=== PATIENT | female | born 1935 | race Caucasian/White ===

== ENCOUNTER → 2016-09-12 | Outpatient (CLI) | payer MEDICARE, OTHER ==
[~2016-09-12] MED LIST: /ESCI20TA OR; AMIT25TA PO; AMLO10TA OR; ASPI81CH PO; ATAC32TA PO; B-6 OR; CALCIUM 600 + VIT D OR; CARV6.25 PO; CHLO125TA PO; CHLO25TA PO; CIPR25SS OR; CIPR500T4 OR; CLON0.1D3 TD; COLA100C2 OR; CRES5TAB PO; EFFE150C PO; FLAG500T OR; LASI40TA OR; LOVA1CAP17 PO; LOVAZA OR; MECL25CH PO; MULTIVIT OR; MYSO50TA5 PO; POTA10TA34 PO; SPIRPOW OR; SYNT50TA PO; SYNTHROID OR; TOPR100T OR; VALI2TAB PO; VIT D 4000 OR; VITATAB11 PO; WELCHOL OR; XANA0.5T PO
[2016-09-12 13:40] LABS: MEAN CORPUSCULAR HEMOGLOBIN 32.8 pg (27.0-33.0); MEAN CORPUSCULAR HGB CONC 35.7 g/dl (32.0-36.5); RED CELL DISTRIBUTION WIDTH 12.4 % (11.5-14.5); WHITE BLOOD COUNT 2.6 K/mm3 (4.0-10.0)
[2016-09-12 14:31] LABS: CALCIUM LEVEL 9.1 MG/DL (8.8-10.2); CREATININE FOR GFR 0.98 MG/DL (0.55-1.02); GLOMERULAR FILTRATION RATE 58.3 (>39); POTASSIUM SERUM 3.8 MEQ/L (3.5-5.1)
[2016-09-12 14:32] LABS: ALBUMIN 3.7 GM/DL (3.2-5.2); MAGNESIUM LEVEL 1.9 MG/DL (1.8-2.4)
== END ==
LOC: M LAB 11:39
PROVIDERS: ATTEND Physician Assistant
DX: I48.0 Paroxysmal atrial fibrillation (principal); I50.32 Chronic diastolic (congestive) heart failure

== ENCOUNTER → 2016-09-13 | Outpatient (CLI) | payer MEDICARE, OTHER ==
[~2016-09-13] VITALS: Ht 165.1 cm; Wt 72.1 kg
[~2016-09-13] MED LIST changes: +NS 1,000 ML IV SCH; +PROPOFOL 200 MG/20 ML VIAL As Ordered ONE
--- NOTE | 2016-09-13 13:02 | ROOR ---
Patient Name: Noemy Morrell Procedure Date: 09/13/2016 12:34 PM Date of : 1935 Age: 80 Room: [facility] Gender: Female Note Status: Finalized Procedure: Colonoscopy to Cecum + Biopsy Polypectomy Indications: High risk colon cancer surveillance: Personal history of adenoma with villous component Providers: Gurinder Dasilva MD Referring MD: CHRISSY PRAJAPATI MD Requesting Provider: Medicines: Monitored Anesthesia Care Complications: No immediate complications. Procedure: Pre-Anesthesia Assessment: - The heart rate, respiratory rate, oxygen saturations, blood pressure, adequacy of pulmonary ventilation, and response to care were monitored throughout the procedure. The Colonoscope was introduced through the anus and advanced to the cecum, identified by appendiceal orifice and ileocecal valve. The colonoscopy was performed without difficulty. The patient tolerated the procedure well. The quality of the bowel preparation was good. Findings: The perianal and digital rectal examinations were normal. Non-bleeding internal hemorrhoids were found during retroflexion. The hemorrhoids were small and Grade I (internal hemorrhoids that do not prolapse). A medium polyp was found in the rectum. The polyp was sessile. The polyp was removed with a cold biopsy forceps. Resection and retrieval were complete. Multiple small and large-mouthed diverticula were found in the recto-sigmoid colon, sigmoid colon and descending colon. The exam was otherwise without abnormality on direct and retroflexion views. Impression: - Non-bleeding internal hemorrhoids. - One medium polyp in the rectum, removed with a cold biopsy forceps. Resected and retrieved. - Diverticulosis in the recto-sigmoid colon, in the sigmoid colon and in the descending colon. - The examination was otherwise normal on direct and retroflexion views. - The exam was otherwise normal to the cecum. Recommendation: - Patient has a contact number available for emergencies. The signs and symptoms of potential delayed complications were discussed with the patient. Return to normal activities tomorrow. Written discharge instructions were provided to the patient. - High fiber diet. - Discharge patient to home. - Continue present medications. - Await pathology results. - Telephone GI clinic for pathology results in 1 week. - Return to referring physician. - Repeat colonoscopy for surveillance based on pathology results. - The findings and recommendations were discussed with the patient's family. Gurinder Dasilva MD Gurinder Dasilva MD 09/13/2016 1:02:10 PM This report has been signed electronically. Number of Addenda: 0 Note Initiated On: 09/13/2016 12:34 PM Estimated Blood Loss: Estimated blood loss: none.
[2016-09-13 13:20] VITALS: BP 159/79
== END ==
LOC: M OPP 11:20
PROVIDERS: ATTEND Internal Medicine Gastroenterology
DX: Z12.11 Encounter for screening for malignant neoplasm of colon (principal); Z86.010 Personal history of colon polyps; D37.4 Neoplasm of uncertain behavior of colon; K64.0 First degree hemorrhoids; K62.1 Rectal polyp; K57.30 Diverticulosis of large intestine without perforation or abscess without bleeding; K62.5 Hemorrhage of anus and rectum; I10 Essential (primary) hypertension; I25.10 Atherosclerotic heart disease of native coronary artery without angina pectoris; E78.00 Pure hypercholesterolemia, unspecified; I50.9 Heart failure, unspecified; Z95.0 Presence of cardiac pacemaker; Z79.899 Other long term (current) drug therapy; Z88.8 Allergy status to other drugs, medicaments and biological substances

== ENCOUNTER → 2016-10-10 | Outpatient (CLI) | payer MEDICARE, OTHER ==
[~2016-10-10] MED LIST changes: -NS 1,000 ML IV SCH; -PROPOFOL 200 MG/20 ML VIAL As Ordered ONE
[2016-10-10 14:30] LABS: ALBUMIN 3.5 GM/DL (3.2-5.2); CALCIUM LEVEL 9.4 MG/DL (8.8-10.2); CREATININE FOR GFR 0.97 MG/DL (0.55-1.02); GLOMERULAR FILTRATION RATE 58.8 (>32); MAGNESIUM LEVEL 1.6 MG/DL (1.8-2.4); PHOSPHORUS LEVEL 3.1 MG/DL (2.5-4.9); POTASSIUM SERUM 3.9 MEQ/L (3.5-5.1)
== END ==
LOC: M LAB 13:16
PROVIDERS: ATTEND Physician Assistant
DX: I50.32 Chronic diastolic (congestive) heart failure (principal); I48.0 Paroxysmal atrial fibrillation

== ENCOUNTER → 2016-12-12 | Outpatient (CLI) | payer MEDICARE, OTHER ==
[2016-12-12 12:53] LABS: ALBUMIN 3.7 GM/DL (3.2-5.2); ANION GAP 7 MEQ/L (8-16); BLOOD UREA NITROGEN 17 MG/DL (7-18); CALCIUM LEVEL 8.6 MG/DL (8.8-10.2); CARBON DIOXIDE LEVEL 28 MEQ/L (21-32); CHLORIDE LEVEL 104 MEQ/L (98-107); CREATININE FOR GFR 0.85 MG/DL (0.55-1.02); GLOMERULAR FILTRATION RATE > 60.0 (>32); GLUCOSE, FASTING 103 MG/DL (83-110); PHOSPHORUS LEVEL 3.1 MG/DL (2.5-4.9); POTASSIUM SERUM 4.1 MEQ/L (3.5-5.1); SODIUM LEVEL 139 MEQ/L (136-145)
== END ==
LOC: M LAB 11:39
PROVIDERS: ATTEND Physician Assistant
DX: I50.32 Chronic diastolic (congestive) heart failure (principal)

== ENCOUNTER → 2017-03-13 | Outpatient (CLI) | payer MEDICARE, OTHER ==
[~2017-03-13] MED LIST changes: +MECL1CHW2 PO; -MECL25CH PO; -POTA10TA34 PO; +POTA10TA67 PO
[2017-03-13 14:55] LABS: ALBUMIN 3.7 GM/DL (3.2-5.2); CALCIUM LEVEL 9.5 MG/DL (8.8-10.2); CREATININE FOR GFR 0.97 MG/DL (0.55-1.02); GLOMERULAR FILTRATION RATE 58.8 (>32); MAGNESIUM LEVEL 1.9 MG/DL (1.8-2.4); PHOSPHORUS LEVEL 2.6 MG/DL (2.5-4.9); POTASSIUM SERUM 3.7 MEQ/L (3.5-5.1)
== END ==
LOC: M LAB 13:32
PROVIDERS: ATTEND Internal Medicine
DX: I50.32 Chronic diastolic (congestive) heart failure (principal)

== ENCOUNTER → 2017-09-25 | Outpatient (CLI) | payer MEDICARE, OTHER ==
[2017-09-25 14:23] LABS: ALBUMIN 3.7 GM/DL (3.2-5.2); ANION GAP 7 MEQ/L (8-16); BLOOD UREA NITROGEN 19 MG/DL (7-18); CALCIUM LEVEL 8.6 MG/DL (8.8-10.2); CARBON DIOXIDE LEVEL 26 MEQ/L (21-32); CHLORIDE LEVEL 106 MEQ/L (98-107); CREATININE FOR GFR 0.86 MG/DL (0.55-1.30); GLOMERULAR FILTRATION RATE > 60.0 (>32); GLUCOSE, FASTING 118 MG/DL (70-100); PHOSPHORUS LEVEL 3.1 MG/DL (2.5-4.9); POTASSIUM SERUM 4.1 MEQ/L (3.5-5.1); SODIUM LEVEL 139 MEQ/L (136-145)
== END ==
LOC: M LAB 12:59
DX: I50.32 Chronic diastolic (congestive) heart failure (principal)
CPT/HCPCS: 80069

== ENCOUNTER → 2017-12-25 | Outpatient (CLI) | payer MEDICARE, OTHER | LOC: M WUC 14:18 | DX: M79.622 Pain in left upper arm (principal); M19.041 Primary osteoarthritis, right hand | CPT/HCPCS: 73060 ==

== ENCOUNTER → 2018-01-01 | Outpatient (CLI) | payer MEDICARE, OTHER ==
[2018-01-01 21:54] LABS: ALBUMIN 3.9 GM/DL (3.2-5.2); ANION GAP 8 MEQ/L (8-16); BLOOD UREA NITROGEN 24 MG/DL (7-18); CALCIUM LEVEL 8.7 MG/DL (8.8-10.2); CARBON DIOXIDE LEVEL 26 MEQ/L (21-32); CHLORIDE LEVEL 106 MEQ/L (98-107); CREATININE FOR GFR 1.05 MG/DL (0.55-1.30); GLOMERULAR FILTRATION RATE 53.5 (>32); GLUCOSE, FASTING 169 MG/DL (70-100); PHOSPHORUS LEVEL 3.2 MG/DL (2.5-4.9); POTASSIUM SERUM 4.1 MEQ/L (3.5-5.1); SODIUM LEVEL 140 MEQ/L (136-145)
== END ==
LOC: M LAB 10:44
DX: I50.32 Chronic diastolic (congestive) heart failure (principal)
CPT/HCPCS: 80069

== ENCOUNTER → 2018-02-11 | Outpatient (CLI) | payer MEDICARE, OTHER ==
[2018-02-11 10:45] LABS: EOS % 0.3 % (0.0-3.0); HEMATOCRIT 36.9 % (36.0-47.0); HEMOGLOBIN 12.8 g/dl (12.0-15.5); IMMATURE GRANULOCYTE % 0.8 % (0-3.0); LYMPH % 24.7 % (24.0-44.0); MEAN CORPUSCULAR HEMOGLOBIN 32.2 pg (27.0-33.0); MEAN CORPUSCULAR HGB CONC 34.7 g/dl (32.0-36.5); MEAN CORPUSCULAR VOLUME 92.9 fl (80.0-96.0); MONO # 0.5 10^3/uL (0.0-0.8); NEUTROPHILS # 2.4 10^3/uL (1.8-7.7); NEUTROPHILS % 61.2 % (36.0-66.0); PLATELET COUNT, AUTOMATED 114 10^3/uL (150-450); RED BLOOD COUNT 3.97 10^6/uL (4.00-5.40); WHITE BLOOD COUNT 3.8 10^3/uL (4.0-10.0)
[2018-02-11 11:02] LABS: ALBUMIN 3.7 GM/DL (3.2-5.2); ALBUMIN/GLOBULIN RATIO 1.23 (1.00-1.93); ALKALINE PHOSPHATASE 70 U/L (45-117); ALT/SGPT 16 U/L (12-78); ANION GAP 9 MEQ/L (8-16); AST/SGOT 11 U/L (7-37); BILIRUBIN,TOTAL 1.4 MG/DL (0.2-1.0); BLOOD UREA NITROGEN 32 MG/DL (7-18); CALCIUM LEVEL 8.8 MG/DL (8.8-10.2); CARBON DIOXIDE LEVEL 27 MEQ/L (21-32); CHLORIDE LEVEL 105 MEQ/L (98-107); CREATININE FOR GFR 1.14 MG/DL (0.55-1.30); GLOMERULAR FILTRATION RATE 48.7 (>32); GLUCOSE, FASTING 129 MG/DL (70-100); POTASSIUM SERUM 4.2 MEQ/L (3.5-5.1); SODIUM LEVEL 141 MEQ/L (136-145); TOTAL PROTEIN 6.7 GM/DL (6.4-8.2)
== END ==
LOC: M WUC 09:22
DX: R19.7 Diarrhea, unspecified (principal); R10.84 Generalized abdominal pain
CPT/HCPCS: 80053

== ENCOUNTER → 2018-02-17 | Outpatient (CLI) | payer MEDICARE, OTHER | LOC: M RAD 09:50 | DX: M79.622 Pain in left upper arm (principal); M25.512 Pain in left shoulder; M47.892 Other spondylosis, cervical region; M53.82 Other specified dorsopathies, cervical region | CPT/HCPCS: 72125 ==

== ENCOUNTER 2018-02-26 12:14 | Emergency (ER) | payer MEDICARE, OTHER ==
[2018-02-26] MEDS: NS 1,000 ML IV (12:37)
[2018-02-26 12:59] LABS: BASO % 0.2 % (0.0-1.0); HEMOGLOBIN 13.2 g/dl (12.0-15.5); IMMATURE GRANULOCYTE % 0.7 % (0-3.0); LYMPH # 1.2 10^3/uL (1.5-4.5); LYMPH % 11.4 % (24.0-44.0); MEAN CORPUSCULAR HEMOGLOBIN 31.3 pg (27.0-33.0); MEAN CORPUSCULAR HGB CONC 33.8 g/dl (32.0-36.5); MEAN CORPUSCULAR VOLUME 92.4 fl (80.0-96.0); MONO # 0.7 10^3/uL (0.0-0.8); NEUTROPHILS # 8.6 10^3/uL (1.8-7.7); NEUTROPHILS % 80.7 % (36.0-66.0); PLATELET COUNT, AUTOMATED 225 10^3/uL (150-450); RED BLOOD COUNT 4.22 10^6/uL (4.00-5.40); RED CELL DISTRIBUTION WIDTH 11.5 % (11.5-14.5); WHITE BLOOD COUNT 10.6 10^3/uL (4.0-10.0)
[2018-02-26] MEDS: GASTROGRAFIN SOLUTION 30ML PO ×2 (13:00→13:41)
[2018-02-26 13:06] LABS: KETONE, URINE AUTO RFX NEGATIVE (NEGATIVE); LEUKOCYTE ESTERASE UR AUTO RFX NEGATIVE (NEGATIVE); MUCUS, URINE RFX SMALL (NEGATIVE); NITRITE, URINE AUTO RFX NEGATIVE (NEGATIVE); RBC, URINE AUTO RFX 4 /HPF (0-3); SPECIFIC GRAVITY UR AUTO RFX 1.019 (1.002-1.035); SQUAM EPITHELIAL CELL UR AURFX 1 /HPF (0-6); WBC, URINE AUTO RFX 1 /HPF (0-3)
[2018-02-26 13:27] LABS: ALBUMIN 3.1 GM/DL (3.2-5.2); ALBUMIN/GLOBULIN RATIO 0.78 (1.00-1.93); ALKALINE PHOSPHATASE 96 U/L (45-117); ALT/SGPT 21 U/L (12-78); ANION GAP 10 MEQ/L (8-16); AST/SGOT 21 U/L (7-37); BILIRUBIN,DIRECT 0.2 MG/DL (0.0-0.2); BILIRUBIN,TOTAL 1.1 MG/DL (0.2-1.0); BLOOD UREA NITROGEN 23 MG/DL (7-18); CALCIUM LEVEL 8.8 MG/DL (8.8-10.2); CARBON DIOXIDE LEVEL 23 MEQ/L (21-32); CHLORIDE LEVEL 105 MEQ/L (98-107); GLOMERULAR FILTRATION RATE 45.9 (>32); GLUCOSE, FASTING 115 MG/DL (70-100); LIPASE 73 U/L (73-393); POTASSIUM SERUM 4.7 MEQ/L (3.5-5.1); SODIUM LEVEL 138 MEQ/L (136-145); TOTAL PROTEIN 7.1 GM/DL (6.4-8.2)
[2018-02-26 13:30] LABS: LACTIC ACID SEPSIS PROTOCOL 1.4 MMOL/L (0.4-2.0)
[2018-02-26] MEDS ORDERED: ISOVUE-370 76% 100ML VIAL (Q9967) As Ordered (13:59)
[2018-02-26] MEDS: metroNIDAZOLE (FLAGYL) 500 MG TAB PO (16:20)
[2018-02-26] MEDS: CIPROFLOXACIN 500 MG TAB PO (16:20)
== END 2018-02-26 17:21 | disposition home or self-care (01) ==
LOC: M ED 12:14
DX: K57.32 Diverticulitis of large intestine without perforation or abscess without bleeding (principal); I11.9 Hypertensive heart disease without heart failure; E07.9 Disorder of thyroid, unspecified; E78.5 Hyperlipidemia, unspecified; I25.10 Atherosclerotic heart disease of native coronary artery without angina pectoris; H83.09 Labyrinthitis, unspecified ear; Z95.0 Presence of cardiac pacemaker; Z88.5 Allergy status to narcotic agent; Z88.8 Allergy status to other drugs, medicaments and biological substances; Z88.2 Allergy status to sulfonamides; Z79.899 Other long term (current) drug therapy
CPT/HCPCS: Q9963

== ENCOUNTER → 2018-04-09 | Outpatient (CLI) | payer MEDICARE, OTHER ==
[2018-04-09 14:32] LABS: ANION GAP 8 MEQ/L (8-16); BLOOD UREA NITROGEN 35 MG/DL (7-18); CALCIUM LEVEL 8.4 MG/DL (8.8-10.2); CARBON DIOXIDE LEVEL 27 MEQ/L (21-32); CHLORIDE LEVEL 107 MEQ/L (98-107); CREATININE FOR GFR 1.06 MG/DL (0.55-1.30); GLUCOSE, FASTING 135 MG/DL (70-100); POTASSIUM SERUM 4.2 MEQ/L (3.5-5.1); SODIUM LEVEL 142 MEQ/L (136-145)
== END ==
LOC: M LAB 13:32
DX: I50.32 Chronic diastolic (congestive) heart failure (principal); R19.7 Diarrhea, unspecified
CPT/HCPCS: 80048

== ENCOUNTER → 2018-07-09 | Outpatient (CLI) | payer MEDICARE, OTHER ==
[2018-07-09 15:09] LABS: ANION GAP 7 MEQ/L (8-16); BLOOD UREA NITROGEN 20 MG/DL (7-18); CARBON DIOXIDE LEVEL 28 MEQ/L (21-32); CHLORIDE LEVEL 108 MEQ/L (98-107); CREATININE FOR GFR 1.03 MG/DL (0.55-1.30); GLOMERULAR FILTRATION RATE 54.7 (>32); GLUCOSE, FASTING 122 MG/DL (70-100); MAGNESIUM LEVEL 1.9 MG/DL (1.8-2.4); POTASSIUM SERUM 4.4 MEQ/L (3.5-5.1); SODIUM LEVEL 143 MEQ/L (136-145)
== END ==
LOC: M LAB 14:28
DX: I50.32 Chronic diastolic (congestive) heart failure (principal); I48.0 Paroxysmal atrial fibrillation
CPT/HCPCS: 83735

== ENCOUNTER → 2018-10-16 | Outpatient (CLI) | payer MEDICARE, OTHER ==
[~2018-10-16] MED LIST changes: +ATAC32TA17 PO; +CIPR-249 PO; -EFFE150C PO; +EFFE150C2 PO; +FLAG500T PO; +SPIR-10 PO
[2018-10-16 12:54] LABS: BLOOD UREA NITROGEN 16 MG/DL (7-18); CALCIUM LEVEL 8.9 MG/DL (8.8-10.2); CARBON DIOXIDE LEVEL 28 MEQ/L (21-32); CHLORIDE LEVEL 105 MEQ/L (98-107); CREATININE FOR GFR 0.88 MG/DL (0.55-1.30); GLOMERULAR FILTRATION RATE > 60.0 (>32); GLUCOSE, FASTING 102 MG/DL (70-100); MAGNESIUM LEVEL 2.1 MG/DL (1.8-2.4); POTASSIUM SERUM 4.3 MEQ/L (3.5-5.1); SODIUM LEVEL 139 MEQ/L (136-145)
== END ==
LOC: M LAB 11:35
PROVIDERS: ATTEND Physician Assistant
DX: I50.32 Chronic diastolic (congestive) heart failure (principal)

== ENCOUNTER → 2019-01-22 | Outpatient (CLI) | payer MEDICARE, OTHER ==
[~2019-01-22] MED LIST changes: -/ESCI20TA OR; -ASPI81CH PO; +ASPI81CH49 PO; -CHLO25TA PO; +LEXA1TAB2 OR; +MECL1CHW PO; -MECL1CHW2 PO; +METO-745 OR; -TOPR100T OR
[2019-01-22 14:55] LABS: BLOOD UREA NITROGEN 22 MG/DL (7-18); CALCIUM LEVEL 8.9 MG/DL (8.8-10.2); CARBON DIOXIDE LEVEL 27 MEQ/L (21-32); CHLORIDE LEVEL 107 MEQ/L (98-107); CREATININE FOR GFR 0.92 MG/DL (0.55-1.30); GLOMERULAR FILTRATION RATE > 60.0 (>32); GLUCOSE, FASTING 87 MG/DL (70-100); POTASSIUM SERUM 4.2 MEQ/L (3.5-5.1); SODIUM LEVEL 141 MEQ/L (136-145)
[2019-01-22 15:01] LABS: HEMATOCRIT 41.3 % (36.0-47.0); HEMOGLOBIN 13.4 g/dl (12.0-15.5); MEAN CORPUSCULAR HEMOGLOBIN 31.8 pg (27.0-33.0); MEAN CORPUSCULAR HGB CONC 32.4 g/dl (32.0-36.5); MEAN CORPUSCULAR VOLUME 98.1 fl (80.0-96.0); PLATELET COUNT, AUTOMATED 119 10^3/uL (150-450); RED BLOOD COUNT 4.21 10^6/uL (4.00-5.40); WHITE BLOOD COUNT 3.7 10^3/uL (4.0-10.0)
== END ==
LOC: MERGE 13:40 → M LAB 13:40
PROVIDERS: ATTEND Physician Assistant
DX: I49.5 Sick sinus syndrome (principal)

== ENCOUNTER 2019-01-23 09:47 | Day surgery (SDC) | payer MEDICARE, OTHER ==
[~2019-01-23] VITALS: Ht 160 cm; Wt 66.6 kg
[~2019-01-23 09:47] MED LIST changes: +ceFAZolin SOD 1 GM in D5W MINI-BAG PLUS 50 ML IV ONE
[2019-01-23] MEDS ORDERED: ONDANSETRON 4MG/2ML VIAL (J2405) As Ordered ONE (12:18)
[2019-01-23] MEDS ORDERED: PROPOFOL 200 MG/20 ML VIAL As Ordered ONE (12:18)
[2019-01-23] MEDS ORDERED: MIDAZOLAM INJ 2 MG/2 ML VIAL (J2250) As Ordered ONE (12:19)
[2019-01-23] MEDS ORDERED: fentaNYL 100 MCG/2 ML INJECTION (J3010) As Ordered ONE (12:19)
[2019-01-23] MEDS ORDERED: LIDOCAINE 1% MDV 20ML VIAL As Ordered ONE (12:38)
[2019-01-23] MEDS ORDERED: BACITRACIN PWD 50,000 UNITS VIAL As Ordered ONE (12:39)
[2019-01-23] MEDS ORDERED: ceFAZolin 1GM INJ (J0690 PER 500MG) As Ordered ONE (13:12)
[2019-01-23 14:39] VITALS: BP 138/70
--- NOTE | 2019-01-23 15:19 | RO ---
DATE OF PROCEDURE: 01/23/2019 TITLE OF PROCEDURE: 1. Explantation of depleted dual-chamber pacemaker pulse generator. 2. Testing of old atrial and ventricular pacing leads. 3. Implantation of new dual-chamber pacemaker pulse generator. IMPLANTING CORNETIST: Dr. Frederick Lara ANESTHESIOLOGIST: Dr. Morales PREOPERATIVE DIAGNOSES: 1. Depleted dual-chamber pacemaker pulse generator. 2. Tachy-josé miguel syndrome. 3. Paroxysmal atrial fibrillation. TYPE OF ANESTHESIA: Monitored local anesthesia. CLINICAL SUMMARY: This 83-year-old lady, resident of [place], [place] is well-known to our cardiology practice having hypertensive and valvular heart disease complicated by abnormal EKG (first-degree AV block and right bundle branch block) paroxysmal atrial fibrillation and tachy-josé miguel syndrome with original dual-chamber pacemaker implant 01/08/2005. She has been followed on a regular basis through our office and presented yesterday with a complaint of increasing shortness of breath and ease of fatigue. Her device was interrogated and was shown to be in backup mode with VVI pacing with retrograde atrial activation likely responsible for her symptoms. We could not fully interrogate or test her device because of how low the battery voltage was, so fairly urgent arrangements were made for pacemaker replacement today. Customarily she remains remarkably independent and has been free of any chest pain, palpitations or dizziness. On examination, she is a pleasant elderly lady of medium body build laying comfortably flat. Heart rate 68 beats per minute and regular. Blood pressure 124/68 sitting, respiratory rate 16, BMI 24.3. No pallor or cyanosis. Trachea midline. Neck veins were only 2 cm above the sternal angle. Normal chest configuration and chest expansion with well-healed pacemaker incision left subclavian region. There is good air entry over both lung hernandez with no adventitious sounds. Apical impulse at the medical line fifth intercostal space. S1 was soft, paradoxically split S2. No audible gallops but soft systolic ejection murmur left sternal border. Soft, nontender abdomen with 1 mm pitting edema one-third of the way up both lower legs. Few dilated superficial venules. Normal pedal pulses. EKG: Study performed yesterday shows underlying ventricular pacing at 68 beats per minute with retrograde atrial activation. Occasional PVCs. Pacemaker was in backup VVI mode. Blood work showed a hemoglobin of 12.8 with normal white blood cell count and platelet count. His last chemistry 10/16/2018 showed electrolyte balance with potassium 4.3 and normal renal function, BUN 16, creatinine 0.88. Random glucose 102. Magnesium was 2.1. DESCRIPTION OF PROCEDURE: With the patient in the fasting state having signed informed consent and having received Ancef 2 grams IV premedication, she was taken to the operating theater. Numerous skin electrodes were applied to facilitate continuous electrocardiographic monitoring. The left subclavian region site of her old pacemaker was then prepped and draped in the usual fashion. The skin over her old pacer incision was infiltrated with 1% Xylocaine and a 5-cm linear incision was made over the same site. Careful dissection was then performed down to her depleted pulse generator, which was then explanted ([employer], model number 5366, serial number [id number], originally implanted ). The individual pacing leads were then disconnected and tested separately. The right ventricular lead ([employer] model number 1388T/serial number [id number]) measurements were: Stimulation threshold 1.0 V/0.4 ms/impedance that is 411 ohms. The capital R wave amplitude measured 5.4 mV. The atrial lead ([employer] model number 1388T/serial number [id number]) measurements were: Stimulation threshold 0.7V/0.4 ms/ impedance 321 ohms. The capital P wave amplitude measured 2.3 mV. These old pacing leads were then connected to a new dual-chamber pulse generator ([employer] - [employer] model number [id number]/ serial number [id number]) and appropriate DDD pacing was documented. The old pacer pocket was thoroughly irrigated with bacitracin solution. The new pulse generator was placed in the pocket without difficulty. The subcutaneous tissues were approximated using a running chromic suture and the skin was closed using peggy. Dry dressing was applied, and the patient was returned to the recovery room in good condition. No apparent complications. Estimated blood loss 5-10 ml. She will be able to be discharged within 1 or 2 hours where she is able to eat and ambulate normally. FINAL DIAGNOSES: 1. Depleted dual-chamber pulse pacer battery 2. Tachy-josé miguel syndrome. 3. Abnormal EKG - first-degree AV block and right bundle branch block. 4. Paroxysmal atrial fibrillation. DISCHARGE MEDICATIONS AND RECOMMENDATIONS: The patient was requested to resume her customary modest salt intake restriction and to perform only light activities of daily living with her left arm and avoid getting her incision wet until her peggy are removed at followup clinic visit 01/30/2019 at 12:45 p.m. Her medications were to resume carvedilol 6.25 mg every morning and 12.5 mg every evening, Atacand 32 mg daily, chlorthalidone 12.5 mg daily, KCl 10 mEq twice a day, Crestor 5 mg daily, aspirin 325 mg daily, Synthroid 75 mcg daily, Effexor XR 150 mg daily, and Xanax 0.5 mg by mouth three times a day as needed anxiety. She has been encouraged to contact us promptly for any abnormal erythema, swelling or discharge.
== END 2019-01-23 15:06 | disposition home or self-care (01) ==
LOC: M SDC 09:47 → MERGE 13:25 → M SDC 15:06
PROVIDERS: ATTEND Internal Medicine Cardiovascular Disease
DX: I49.5 Sick sinus syndrome (principal); Z45.010 Encounter for checking and testing of cardiac pacemaker pulse generator [battery]; I48.0 Paroxysmal atrial fibrillation; I25.10 Atherosclerotic heart disease of native coronary artery without angina pectoris; F41.9 Anxiety disorder, unspecified; F32.9 Major depressive disorder, single episode, unspecified; I11.9 Hypertensive heart disease without heart failure; Z88.2 Allergy status to sulfonamides; Z88.8 Allergy status to other drugs, medicaments and biological substances; Z79.899 Other long term (current) drug therapy
CPT/HCPCS: 33228; C1785; J0690; J2250; J2405; J3010

== ENCOUNTER → 2019-05-21 | Outpatient (CLI) | payer MEDICARE, OTHER ==
[~2019-05-21] MED LIST changes: +ASPI1TAB23 PO; +LEVO75TA4 PO; +VENL150C43 PO; -ceFAZolin SOD 1 GM in D5W MINI-BAG PLUS 50 ML IV ONE
[2019-05-21 14:18] LABS: HEMATOCRIT 38.9 % (36.0-47.0); MEAN CORPUSCULAR HEMOGLOBIN 32.1 pg (27.0-33.0); MEAN CORPUSCULAR HGB CONC 33.4 g/dl (32.0-36.5); PLATELET COUNT, AUTOMATED 121 10^3/uL (150-450); RED BLOOD COUNT 4.05 10^6/uL (4.00-5.40); WHITE BLOOD COUNT 4.6 10^3/uL (4.0-10.0)
[2019-05-21 14:31] LABS: INR 1.17; PROTHROMBIN TIME 14.6 SECONDS (11.8-14.0)
[2019-05-21 14:47] LABS: ALBUMIN 3.8 GM/DL (3.2-5.2); BILIRUBIN,TOTAL 0.9 MG/DL (0.2-1.0); CREATININE FOR GFR 0.96 MG/DL (0.55-1.30); GLOMERULAR FILTRATION RATE 59.2 (>32); POTASSIUM SERUM 4.4 MEQ/L (3.5-5.1); TOTAL PROTEIN 6.8 GM/DL (6.4-8.2)
[2019-05-21 14:57] LABS: ERYTHROCYTE SEDIMENTATION RATE 77 mm/hr (0-30)
--- NOTE | 2019-05-22 00:34 | ECGEPIP ---
[facility] Test Date: 2019-05-21 Pat Name: HARLEY YOUSSEF Department: Room: - Gender: Female Government Clerk: [facility] : 1935 Requested By: Mendoza Fowler @ [facility] Order Number: [id number] Reading MD: Dieudonne Bella Measurements Intervals [place] Rate: 69 P: 180 ID: 225 QRS: 40 QRSD: 102 T: 44 QT: 421 QTc: 454 Interpretive Statements ELECTRONIC ATRIAL PACEMAKER ELECTRONIC VENTRICULAR PACEMAKER ABNORMAL RHYTHM ECG NO PRIOR TRACING IN THE SYSTEM Electronically Signed on 05-22-2019 0:34:34 EDT by Dieudonne Bella
== END ==
LOC: M LAB 13:31
PROVIDERS: ATTEND Orthopaedic Surgery
DX: Z01.818 Encounter for other preprocedural examination (principal); M17.11 Unilateral primary osteoarthritis, right knee

== ENCOUNTER → 2019-05-28 | Outpatient (CLI) | payer MEDICARE, OTHER ==
--- NOTE | 2019-05-28 12:36 | REP ---
PA and lateral chest: Comparison is 05/27/2014. The lung hernandez are clear. The cardiac size is normal. The akash, mediastinum, and skeletal structures are unremarkable. There is a dual-chamber pacemaker, unchanged. Impression: Negative PA and lateral chest. There is no interval change. Electronically Signed by Patel Busch MD 05/28/2019 12:28 P
== END ==
LOC: M RAD 11:28
PROVIDERS: ATTEND Orthopaedic Surgery
DX: Z01.818 Encounter for other preprocedural examination (principal); Z95.0 Presence of cardiac pacemaker; F41.9 Anxiety disorder, unspecified; Z79.899 Other long term (current) drug therapy

== ENCOUNTER 2019-05-31 07:30 | Inpatient (IN) | payer MEDICARE, OTHER ==
[~2019-05-31] VITALS: Ht 160 cm; Wt 65.8 kg
--- NOTE | 2019-06-04 11:44 | HPE ---
DATE OF ANTICIPATED ADMISSION: 06/07/2019 ATTENDING PHYSICIAN: Dr. Mendoza Fowler CHIEF COMPLAINT: Right knee pain and stiffness. HISTORY: The patient is an 83-year-old female with progressively worsening right knee pain and stiffness. She has failed to improve with conservative measures. She continues to have symptoms with weightbearing activities and activities of daily living. She has consented for an elective right total knee arthroplasty with Dr. Fowler for her continued symptoms. Medical optimization completed with Dr. Jair Felix. CURRENT MEDICATIONS: - Effexor 75 mg daily - levothyroxine 75 mcg daily - rosuvastatin 5 mg daily - Flonase 0.05% once daily - Xanax 0.5 mg as needed - Atacand 32 mg daily - chlorthalidone 25 mg daily - spironolactone 25 mg daily - carvedilol 8.25 mg daily - aspirin 325 mg daily - potassium 10 mEq daily MEDICATION ALLERGIES: FELDENE. ZOCOR. PAST MEDICAL HISTORY: Type 2 diabetes. Thrombocytopenic disorder. Chronic liver disease. Arthropathy. Congestive heart failure cardiac pacemaker in situ. Anxiety. 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 Chronic cholecystitis. Depressive disorder. Hyperlipidemia. Hypertension. Headaches. PAST SURGICAL HISTORY: Bladder suspension. Hysterectomy. Cholecystectomy. Cataract removal. Pacemaker insertion. Colonoscopy. SOCIAL HISTORY: The patient is and lives at home with spouse. She drinks wine occasionally and does not use tobacco. REVIEW OF SYSTEMS: The patient denies fevers, chills, nausea, vomiting or diarrhea. She denies chest pain, shortness of breath, lightheadedness, dizziness or headaches. She denies any abdominal pain. She denies any recent upper respiratory or urinary tract infection symptoms. PHYSICAL EXAMINATION: General: Well-nourished, well-developed female, in no apparent distress. She is alert, oriented and cooperative. Her mood and affect are appropriate. Vital signs: Blood pressure 128/87, heart rate 63, respirations 11, temperature 97.7. Height 64 inches. Weight 146 pounds. Heart: Regular rate and rhythm. Lungs: Clear to auscultation bilaterally. Breathing is regular and nonlabored. Abdomen: Soft and nontender to palpation. Bowel sounds are present. Musculoskeletal: Right knee exhibits no gross abnormalities. Skin is intact. There is tenderness along the medial joint line. The patient can extend knee to about 2 degrees and flex to approximately 95 degrees. Right lower extremity strength is 5/5. No hip irritability elicited with range of motion testing. Calf is soft, nontender to palpation with no palpable cords noted. She is neurovascularly intact distally. LABORATORY DATA: EKG: Sinus bradycardia with moderate intraventricular conduction delay. Chest x-ray: Negative PA and lateral chest without interval change. Right knee x-rays: Advanced tricompartmental osteoarthritis with [id number] contact in the medial femorotibial compartment. Extensive vessel calcifications noted posteriorly. Soft tissue calcification noted posteriorly. Prothrombin time elevated at 14.6, INR 1.17. Comprehensive metabolic profile: Fasting glucose 78, BUN elevated at 33, creatinine 0.96, GFR 59.2, sodium 141, potassium 4.4, chloride 105, carbon dioxide 8, anion gap 8, calcium 9.0, AST 16, ALT 18, alkaline phosphatase 75, total bilirubin 0.9, total protein 6.8, albumin 3.8, albumin-globulin ratio 1.27. Complete blood count: WBC is 4.6, RBC 4.05, hemoglobin 13, hematocrit 38.9, platelets decreased at 121, erythrocyte sedimentation rate elevated at 77. IMPRESSION: Right knee osteoarthritis with x-rays notable for end-stage degenerative changes. PLAN: The patient has consented for an elective right total knee arthroplasty with Dr. Fowler for her continued symptoms. Medical optimization completed with Dr. Felix. ROLY
[2019-06-07] VITALS (9 sets, daily range): BP systolic 108–147; BP diastolic 53–79
[2019-06-07] MEDS ORDERED: LIDOCAINE 1% MDV 20ML VIAL SQ PRN (06:00)
[2019-06-07] MEDS ORDERED: ceFAZolin SOD 2 GM in IV 1 EA IV ONE (06:00)
[2019-06-07] MEDS ORDERED: LR 1,000 ML IV ONE (06:00)
[2019-06-07] MEDS ORDERED: TRANEXAMIC ACID 100 MG/ML 10ML VIAL As Ordered ONE (06:37)
[2019-06-07] MEDS ORDERED: BUPIVACAINE LIPOSOME/PF 1.3% 20ML VIAL (13.3MG/ML)(EXPAREL)(C9290 PER1MG) As Ordered ONE (06:37)
[2019-06-07] MEDS ORDERED: ceFAZolin 1GM INJ (J0690 PER 500MG) As Ordered ONE (06:37)
[2019-06-07] MEDS ORDERED: EPINEPHrine INJ 1 MG/ML 1ML AMP As Ordered ONE (06:38)
[2019-06-07] MEDS ORDERED: MIDAZOLAM INJ 2 MG/2 ML VIAL (J2250) As Ordered ONE ×2 (07:10→08:53)
[2019-06-07] MEDS ORDERED: fentaNYL 100 MCG/2 ML INJECTION (J3010) As Ordered ONE ×2 (07:10→08:53)
[2019-06-07] MEDS: MIDAZOLAM INJ 2 MG/2 ML VIAL (J2250) IV PRN ×2 (08:22→08:25)
[2019-06-07] MEDS ORDERED: fentaNYL 100 MCG/2 ML INJECTION (J3010) IV PRN ×3 (08:45→15:00)
--- NOTE | 2019-06-07 08:50 | IPN ---
DATE: 06/07/2019 Patient seen and examined. She wished to go ahead with a right total knee arthroplasty. She understands the nature of this, the risks of bleeding, infection, damage to nerves, vessels, persistent pain, wear, loosening, blood clots, medical problems, among others. Preop clearance was obtained.
[2019-06-07] MEDS ORDERED: PROPOFOL 200 MG/20 ML VIAL As Ordered ONE (08:53)
[2019-06-07] MEDS ORDERED: PHENYLephrine HCL 500 MCG/5 ML (100MCG/ML) SYRINGE (J2370) As Ordered ONE (09:08)
[2019-06-07] MEDS ORDERED: ONDANSETRON 4MG/2ML VIAL (J2405) IV PRN ×3 (10:15→15:00)
[2019-06-07] MEDS ORDERED: LR 1,000 ML IV SCH ×2 (10:15→15:00)
[2019-06-07] MEDS ORDERED: MORPHINE 10 MG/ML 1ML VIAL (J2270) IV PRN (10:15)
[2019-06-07] MEDS ORDERED: ROPIvacaine 0.5% 30 ML INJECTION (J2795 PER 1MG) ONE (10:26)
[2019-06-07] MEDS ORDERED: LIDOCAINE 1% MDV 20ML VIAL ONE (10:26)
[2019-06-07] MEDS ORDERED: dexameTHASONE 10 MG/1 ML VIAL PRES.FREE (J1100) ONE (10:26)
[2019-06-07] MEDS ORDERED: MORPHINE 4 MG/ML 1ML VIAL/SYRINGE (J2270) IV PRN ×4 (10:30→15:00)
[2019-06-07] MEDS: LR 1,000 ML IV SCH ×2 (10:30→23:50)
[2019-06-07] MEDS ORDERED: FLEET ENEMA PR PRN ×2 (10:30→15:00)
[2019-06-07] MEDS ORDERED: ACETAMINOPHEN TAB 650MG DOSE (2X325MG) PO PRN ×2 (10:30→15:00)
--- NOTE | 2019-06-07 10:55 | REP ---
RIGHT KNEE: Two views. HISTORY: Postop placement. FINDINGS: AP and lateral views of the right knee demonstrate right knee arthroplasty components in good position. Anterior skin peggy are seen. There is an air-fluid level in the suprapatellar bursa. Perioperative soft tissue swelling and soft tissue emphysema are seen. IMPRESSION: Status post right knee arthroplasty. Electronically Signed by Amado Preston MD 06/07/2019 07:37 P
--- NOTE | 2019-06-07 13:19 | CR.PDOC ---
General Date of Consultation: Jun 07, 2019 Consultation CHIEF COMPLAINT: L. knee pain HISTORY OF PRESENT ILLNESS: Patient is a 83F PMH OA, intractable R. knee pain, CHF s/p cardiac pacemaker placement, chronic thrombocytopenia, reported restrictive CM 2/2 granuloma, depression/anxiety, HLD underwent elective R. total knee arthroplasty today. She reports feeling well without any complaints at the moment including pain. Medicine team is consulted for medical management. Patient denies fever, chills, joint pains. PAST MEDICAL HISTORY: Refer to [facility] PAST SURGICAL HISTORY: Hysterectomy Cholecystectomy Cataract surgery Pacemaker placement SOCIAL HISTORY: Social alcohol use. Denies any tobacco or drug use. FAMILY HISTORY: Brotherlung cancer FatherMI ALLERGIES: Please see below. REVIEW OF SYSTEMS: 10 point review of system negative except as stated in HPI HOME MEDICATIONS: Please see below. PHYSICAL EXAMINATION: General: No acute distress, Alert Eyes: Normal sclera, EOMI, [place] HENT: Atraumatic Cardiovascular: Normal rate, normal rhythm. Pulmonary: Clear to auscultation b/l, no wheezing GI: Soft, nontender, nondistended Skin: Warm and dry MSK: RLE wrapped in dressing, no significant tenderness. Neuro: CN grossly intact. No focal deficits. Psych: oriented x 3 LABORATORY DATA: See below. MICROBIOLOGY: Please see below. ASSESSMENT AND PLAN: 1. R. knee OA - s/p elective RTK arthroplasty 06/07. - Stable post op without any complaints at this time. - c/w pain control. Plan per Ortho. Xarelto for VTE ppx. 2. HTN - c/w home meds. 3. CHF - s/p pacemaker. No evidence of fluid overload. - c/w home medications. Resume ASA tomorrow. 4. HLD - c/w statin. 5. Depression/anxiety - c/w home meds. Vital Signs/I&O Vital Signs Date Time Temp Pulse Resp B/P (MAP) Pulse Ox O2 Delivery O2 Flow Rate FiO2 06/07/19 12:26 68 18 135/71 (92) 97 Room Air 06/07/19 11:05 98 06/07/19 08:25 2 Allergies Coded Allergies: piroxicam (Unverified Allergy, Unknown, RASH, 05/20/19) codeine (Verified Adverse Reaction, Unknown, gets hyper, 05/20/19) metolazone (Verified Adverse Reaction, Unknown, cough, 05/20/19) ramipril (Unverified Adverse Reaction, Unknown, COUGH, 05/20/19) Home Medications Scheduled Aspirin (Aspirin EC) 325 Mg Tablet.dr, 325 MG PO DAILY, (Reported) Candesartan Cilexetil (Atacand) 32 Mg Tab, 32 MG PO DAILY for 30 Days, #30 (Reported) Carvedilol (Carvedilol) 6.25 Mg Tab, 6.25 MG PO QAM, (Reported) Carvedilol (Carvedilol) 6.25 Mg Tablet, 12.5 MG PO QPM, (Reported) Chlorthalidone (Chlorthalidone) 12.5 Mg Halftab, 12.5 MG PO DAILY, (Reported) Levothyroxine Sodium (Levothyroxine Sodium) 75 Mcg Tablet, 75 MCG PO DAILY, (Reported) Potassium Chloride (Potassium Chloride) 10 Meq Tab, 20 MEQ PO BID, (Reported) Rosuvastatin Calcium (Crestor) 5 Mg Tab, 5 MG PO DAILY, (Reported) Venlafaxine HCl (Venlafaxine HCl ER) 150 Mg Cap.er.24h, 150 MG PO DAILY, (Reported) JAE REYEZ MD Jun 07, 2019 13:19
[2019-06-07] MEDS ORDERED: MIDAZOLAM INJ 2 MG/2 ML VIAL (J2250) IV PRN (14:15)
[2019-06-07] MEDS ORDERED: NORCO 5/325MG TABLET (BULK FOR ED) PO PRN (15:00)
[2019-06-07] MEDS ORDERED: ceFAZolin SOD 2 GM in IV 1 EA IV SCH (17:00)
[2019-06-07] MEDS: ceFAZolin SOD 2 GM in IV 1 EA IV SCH (17:12)
--- NOTE | 2019-06-07 18:41 | RO ---
DATE OF PROCEDURE: 06/07/2019 PREOPERATIVE DIAGNOSIS: Right knee osteoarthritis. POSTOPERATIVE DIAGNOSIS: Right knee osteoarthritis. OPERATIVE PROCEDURE: Right total knee arthroplasty using Attune rotating platform cruciate retaining size 3 femur, size 4 tibia, 10 polyethylene, 32 patellar button. SURGEON: Mendoza Fowler MD BIAS CUTTER: NGOC Patino ANESTHESIA: Spinal ESTIMATED BLOOD LOSS: 50 mL COMPLICATIONS: None. INDICATIONS: An 83-year woman who wished to go ahead with a knee replacement. Preop clearance was obtained. DESCRIPTION OF PROCEDURE The patient was taken to the operating room, placed in the supine position after spinal anesthesia was induced. The right lower extremity was prepped and draped in usual sterile fashion. Tourniquet was inflated after and time-out was performed and a longitudinal incision was made over the anterior aspect of the right knee. Curvilinear incision was made around the medial aspect of the patella in the usual fashion. I everted the patella, flexed the knee up using a canal initiating reamer on the femoral side, followed by the intramedullary guide set at 5 degrees of valgus and a 10 mm cut and this fit very nicely. It was pinned in place by the assistant attorney general and the distal femoral cut was then made protecting soft tissues. I sized the femur to be a 3 and pinholes were placed in the end of the femur with external rotation dialed in. I then secured the size 3 cutting block, made sure it was well seated, made the remaining four cuts and protected soft tissue. We then directed our attention to the tibial tray. I freed up the attachment of the PCL and the tibial alignment guide was placed with the appropriate amount of valgus and posterior slope. This was pinned in place and the proximal tibia cut was made protecting soft tissues. I was able to preserve the PCL. I then used a inspector electromechanical to removed soft tissue and osteophytes from either side of the knee and used the sulcus cutting guide and made the sulcus cut on the femur, prepared the tibia with a size 4 tray. This was pinned in place, drilled, broached. Trial components were then placed. I had also used a spacer block prior to this and I felt that the size 10 was going to be the most appropriate thickness. Once the trial components were placed and fit very nicely I brought the knee out in full extension. She had full extension. Excellent stability in extension and flexion. Excellent range of motion and soft tissue balance was excellent. I then freehand cut the patella removing about 7 mm of bone. I drilled the patellar holes and placed the trial button which tracked quite nicely. The drill holes were placed at the end of the femur. The assistant attorney general prepared the bone cement in the modern technique. I then irrigated the bony surfaces, injected the Exparel deep to the tissues and once the surfaces were copiously irrigated and dried, I cemented on the components, placed the polyethylene, cemented on the patella, removed all excess bone cement and then copiously irrigated again. I then placed the TXA solution deep in the wound. Closed the deep layer with #1 Vicryl in running Stratafix suture obtaining a watertight closure. The patella tracked very nicely following this. The knee was stable. I had removed the patellar clamp once the cement had hardened. I then deflated the tourniquet, closed subcu with #2-0 Vicryl and the skin with peggy. Sterile dressing was applied. She was taken to recovery room in stable condition. There were no known complications. PLAN: Will be routine postop. The assistant attorney general was instrumental in holding retractors and assisting in mixing the bone cement and assisting in wound closure.
[2019-06-07] MEDS ORDERED: CARVedilol 6.25 MG TAB PO SCH (21:00)
[2019-06-07] MEDS ORDERED: CANDESARTAN 16 MG TABLET PO SCH (21:00)
[2019-06-07] MEDS ORDERED: VENLAFAXINE **XR** 75MG CAPSULE PO SCH (21:00)
[2019-06-07] MEDS: POTASSIUM CHLORIDE 10 MEQ SR TABLET PO SCH (21:43)
[2019-06-07] MEDS: NORCO, ANEXSIA 5/325MG TABLET (HYDROcodone/ACETAMINOPHEN) PO PRN (21:44)
[2019-06-08] MEDS: ceFAZolin SOD 2 GM in IV 1 EA IV SCH (01:16)
[2019-06-08] MEDS: NORCO, ANEXSIA 5/325MG TABLET (HYDROcodone/ACETAMINOPHEN) PO PRN ×3 (05:58→14:50)
[2019-06-08] MEDS ORDERED: LEVOTHYROXINE 75MCG TABLET (0.075MG) PO SCH (06:00)
[2019-06-08] MEDS ORDERED: XARE10TA PO (06:21)
[2019-06-08] MEDS ORDERED: HYDR-3713 PO (06:21)
[2019-06-08 06:22] VITALS: BP 139/76
[2019-06-08 07:12] LABS: HEMATOCRIT 28.7 % (36.0-47.0); HEMOGLOBIN 9.7 g/dl (12.0-15.5); MEAN CORPUSCULAR HEMOGLOBIN 32.3 pg (27.0-33.0); MEAN CORPUSCULAR HGB CONC 33.8 g/dl (32.0-36.5); MEAN CORPUSCULAR VOLUME 95.7 fl (80.0-96.0); PLATELET COUNT, AUTOMATED 121 10^3/uL (150-450); WHITE BLOOD COUNT 7.3 10^3/uL (4.0-10.0)
[2019-06-08] MEDS ORDERED: RIVAROXABAN 10 MG TAB (XARELTO) PO SCH ×2 (08:00→18:00)
--- NOTE | 2019-06-08 08:44 | IPN ---
DATE: 06/08/2019 CHIEF COMPLAINT: Postoperative day #1 right total knee arthroplasty. HISTORY OF PRESENT ILLNESS: This is an 83-year-old woman who has knee arthritis. She underwent right total knee arthroplasty Dr. Fowler yesterday. She is doing well. She is quite comfortable. This is her first arthroplasty. No chest pain, shortness breath. PHYSICAL EXAMINATION: Well-appearing 83-year-old female. She is alert, oriented times three. Vital signs are stable. Knee is still overwrapped with Kaushal bandage. She is wearing SCDs. She is able to wiggle her toes, dorsiflex, plantar flex her foot and good pedal pulses. Laboratory examination revealed hemoglobin of 9.7. ASSESSMENT/PLAN This is an 83-year-old female. We will mobilize and weightbearing as tolerated, ensure her safety for mobilization with physical therapist and discharged home. Follow up in the office with Dr. Fowler.
[2019-06-08] MEDS ORDERED: CHLORTHALIDONE 12.5MG PER 1/2 TABLET PO SCH (09:00)
[2019-06-08] MEDS ORDERED: ROSUVASTATIN 10 MG TAB (CRESTOR) PO SCH (09:00)
[2019-06-08] MEDS ORDERED: ASPIRIN ENTERIC 325 MG TAB PO SCH (09:00)
[2019-06-08] MEDS ORDERED: CARVedilol 6.25 MG TAB PO SCH (09:00)
[2019-06-08] MEDS ORDERED: MOM 30ML SUSPENSION UDC PO SCH (09:00)
[2019-06-08] MEDS ORDERED: MIRALAX *UNIT DOSE* 17GM PACKET PO SCH (09:00)
[2019-06-08] MEDS ORDERED: SENOKOT S TAB PO SCH (09:00)
[2019-06-08] MEDS: POTASSIUM CHLORIDE 10 MEQ SR TABLET PO SCH (09:18)
[2019-06-08 09:19] VITALS: BP 120/56
[2019-06-08 10:00] VITALS: BP 137/67
--- NOTE | 2019-06-08 11:16 | IPNPDOC ---
Date Seen The patient was seen on 06/08/19. Progress Note SUBJECTIVE: Patient reports feeling more pain today but was able to ambulate with PT. No other complaints apart from pain. Cleared from PT for home. PHYSICAL EXAMINATION: General: No acute distress, Alert Eyes: Normal sclera, EOMI, [place] HENT: Atraumatic Cardiovascular: Normal rate, normal rhythm. Pulmonary: Clear to auscultation b/l, no wheezing GI: Soft, nontender, nondistended Skin: Warm and dry MSK: RLE wrapped in dressing, no significant tenderness. Neuro: CN grossly intact. No focal deficits. Psych: oriented x 3 LABORATORY DATA: See below. MICROBIOLOGY: Please see below. ASSESSMENT AND PLAN: 1. R. knee OA - s/p elective RTK arthroplasty 06/07. - Stable post op. - c/w pain control. Plan per Ortho. Xarelto for VTE ppx. 2. HTN - c/w home meds. 3. CHF - s/p pacemaker. No evidence of fluid overload. - c/w home medications. Resume ASA. 4. HLD - c/w statin. 5. Depression/anxiety - c/w home meds. VS, I&O, 24H, Fishbone Vital Signs/I&O Vital Signs Date Time Temp Pulse Resp B/P (MAP) Pulse Ox O2 Delivery O2 Flow Rate FiO2 06/08/19 10:47 18 06/08/19 09:19 72 120/56 06/08/19 06:34 Room Air 06/08/19 06:22 97.6 97 06/07/19 08:25 2 I&O- Last 24 Hours up to 6 AM 06/08/19 05:59 Intake Total 2360 ml Output Total 600 ml Balance 1760 ml Laboratory Data 24H LABS Laboratory Tests 2 06/08/19 06:51: Nucleated Red Blood Cells % (auto) 0.0 CBC/BMP Laboratory Tests 06/08/19 06:51 JAE REYEZ MD Jun 08, 2019 11:16
== END 2019-06-08 14:55 | disposition home or self-care (01) | DRG 470 ==
LOC: M OR 06-07 06:43 → M MS5PR 06-07 13:04
PROVIDERS: ADMIT Orthopaedic Surgery; ATTEND Orthopaedic Surgery
PROC: 0SRC0J9 Replacement of Right Knee Joint with Synthetic Substitute, Cemented, Open Approach (ICD-10-PCS; principal; 2019-06-07 08:30)
DX: M17.11 Unilateral primary osteoarthritis, right knee (principal); I42.5 Other restrictive cardiomyopathy; E11.9 Type 2 diabetes mellitus without complications; D69.6 Thrombocytopenia, unspecified; K76.89 Other specified diseases of liver; I50.9 Heart failure, unspecified; F41.9 Anxiety disorder, unspecified; F32.9 Major depressive disorder, single episode, unspecified; E78.5 Hyperlipidemia, unspecified; I11.0 Hypertensive heart disease with heart failure; R51 Headache; Z95.0 Presence of cardiac pacemaker; Z90.49 Acquired absence of other specified parts of digestive tract; Z98.49 Cataract extraction status, unspecified eye; Z88.8 Allergy status to other drugs, medicaments and biological substances; Z79.82 Long term (current) use of aspirin; Z79.899 Other long term (current) drug therapy; E03.9 Hypothyroidism, unspecified; Z88.5 Allergy status to narcotic agent

== ENCOUNTER 2019-06-19 10:04 | Outpatient (RCR) | payer MEDICARE, OTHER ==
[~2019-06-19 10:04] MED LIST changes: +HYDR-3713 PO; +XARE10TA PO
== END 2019-06-20 ==
LOC: M PT 10:04
PROVIDERS: ATTEND Orthopaedic Surgery
DX: Z96.651 Presence of right artificial knee joint (principal)

== ENCOUNTER 2019-07-16 10:36 | Outpatient (RCR) | payer MEDICARE, OTHER | END 2019-07-20 | LOC: M PT 10:36 | PROVIDERS: ATTEND Orthopaedic Surgery | DX: Z47.89 Encounter for other orthopedic aftercare (principal) ==

== ENCOUNTER → 2019-07-25 | Outpatient (CLI) | payer MEDICARE, OTHER ==
--- NOTE | 2019-07-25 08:20 | REP ---
Clinical: Status post right knee replacement with pain . Technique: Milian scale and color Doppler evaluation using linear high frequency transducer. Findings: Ultrasound examination of the right lower extremity deep venous structures from the common femoral vein to the popliteal vein demonstrates normal compressibility flow and wave patterns in response to respiration and augmentation. There is no evidence for deep venous thrombosis. Impression: No evidence for deep venous thrombosis. Electronically Signed by Ever Dang MD 07/25/2019 08:12 A
== END ==
LOC: M RAD 07:30
PROVIDERS: ATTEND Physician Assistant
DX: Z96.651 Presence of right artificial knee joint (principal); M25.561 Pain in right knee; Z79.899 Other long term (current) drug therapy

== ENCOUNTER 2019-08-02 10:33 | Outpatient (RCR) | payer MEDICARE, OTHER | END 2019-08-20 | LOC: M PT 10:33 | PROVIDERS: ATTEND Orthopaedic Surgery | DX: Z51.89 Encounter for other specified aftercare (principal); Z96.651 Presence of right artificial knee joint; M25.571 Pain in right ankle and joints of right foot ==

== ENCOUNTER → 2020-04-02 | Outpatient (CLI) | payer MEDICARE, OTHER ==
[2020-05-07 06:59] LABS: HEMATOCRIT 40.2 % (36.0-47.0); HEMOGLOBIN 13.3 g/dl (12.0-15.5); MEAN CORPUSCULAR HEMOGLOBIN 31.7 pg (27.0-33.0); MEAN CORPUSCULAR HGB CONC 33.1 g/dl (32.0-36.5); MEAN CORPUSCULAR VOLUME 95.7 fl (80.0-96.0); PLATELET COUNT, AUTOMATED 114 10^3/uL (150-450); WHITE BLOOD COUNT 7.5 10^3/uL (4.0-10.0)
[2020-05-20 20:12] LABS: BILIRUBIN,TOTAL 1.4 MG/DL (0.2-1.0); CREATININE FOR GFR 1.03 MG/DL (0.55-1.30); GLOMERULAR FILTRATION RATE 54.5 (>32); POTASSIUM SERUM 4.3 MEQ/L (3.5-5.1)
== END ==
LOC: M LAB 14:14
PROVIDERS: ATTEND Internal Medicine
DX: D69.6 Thrombocytopenia, unspecified (principal)

== ENCOUNTER → 2020-10-19 | Outpatient (CLI) | payer MEDICARE, OTHER ==
[~2020-10-19] MED LIST changes: -AMIT25TA PO; +AMIT25TA17 PO
--- NOTE | 2020-10-19 13:57 | DEXAMM ---
INDICATION: AGE RELATED OSTEOPOROSIS W/O CURRENT PATHOLOGICAL FX. COMPARISON: None. TECHNIQUE: Bone density was measured using dual-energy x-ray absorptiometry (DEXA). FINDINGS: AP SPINE L1-L4 BMD 1.262 g/cm2 Young Adult T-Score 0.5 Age Matched Z-Score 2.4. LT FEMUR, TOTAL BMD 0.974 g/cm2 Young Adult T-Score -0.3 Age Matched Z-Score 2.0. LT NECK BMD 1.047 g/cm2 Young Adult T-Score 0.1 Age Matched Z-Score 2.4. RT FEMUR, TOTAL BMD 0.969 g/cm2 Young Adult T-Score -0.3 Age Matched Z-Score 1.9. RT NECK BMD 1.060 g/cm2 Young Adult T-Score 0.2 Age Matched Z-Score 2.5. IMPRESSION: There is normal bone density of the spine. There is normal bone density of the left hip. There is normal bone density of the right hip. FOLLOW-UP: Recommendation for the next bone density exam: 5 years. <Electronically signed by Patel Milian > 10/19/20 [id number]
== END ==
LOC: M WHC 12:56
PROVIDERS: ATTEND Internal Medicine
DX: M81.0 Age-related osteoporosis without current pathological fracture (principal)

== ENCOUNTER → 2021-08-23 | Outpatient (CLI) | payer MEDICARE, OTHER ==
[2021-08-23 16:25] LABS: BASO % 0.3 % (0.0-1.0); EOS % 0.3 % (0.0-3.0); HEMOGLOBIN 14.3 g/dl (12.0-15.5); LYMPH # 1.3 10^3/uL (1.5-5.0); MEAN CORPUSCULAR HGB CONC 33.3 g/dl (32.0-36.5); MEAN CORPUSCULAR VOLUME 96.2 fl (80.0-96.0); MONO # 0.5 10^3/uL (0.0-0.8); MONO % 8.4 % (2.0-8.0); NEUTROPHILS # 4.6 10^3/uL (1.5-8.5); NEUTROPHILS % 70.7 % (36.0-66.0); PLATELET COUNT, AUTOMATED 130 10^3/uL (150-450); RED BLOOD COUNT 4.47 10^6/uL (4.00-5.40); WHITE BLOOD COUNT 6.4 10^3/uL (4.0-10.0)
[2021-08-23 16:39] LABS: ALBUMIN 3.8 GM/DL (3.2-5.2); BILIRUBIN,DIRECT 0.4 MG/DL (0.0-0.2); BILIRUBIN,TOTAL 1.3 MG/DL (0.2-1.0); CALCIUM LEVEL 9.1 MG/DL (8.8-10.2); CHOLESTEROL RISK RATIO 3.575 (<5); CREATININE FOR GFR 1.02 MG/DL (0.55-1.30); FREE T3 1.9 PG/ML (2.2-4.0); FREE T4 1.17 NG/DL (0.76-1.46); PHOSPHORUS LEVEL 3.2 MG/DL (2.5-4.9); POTASSIUM SERUM 3.9 MEQ/L (3.5-5.1); THYROID STIMULATING HORMONE 0.832 uIU/ML (0.358-3.740); TOTAL PROTEIN 6.7 GM/DL (6.4-8.2)
[2021-08-23 18:00] LABS: HEMOGLOBIN A1c 5.3 %
[2021-08-23 18:02] LABS: TOTAL 25(OH) VITAMIN D 13.2 NG/ML (30.0-100.0)
--- NOTE | 2021-08-24 20:49 | ECGEPIP ---
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 No significant change compared with 05/21/2019. Electronically Signed on 08-24-2021 20:49:02 EST by Nolan Scott
== END ==
LOC: M LAB 15:10
PROVIDERS: ATTEND Registered Nurse
DX: F32.9 Major depressive disorder, single episode, unspecified (principal); Z51.81 Encounter for therapeutic drug level monitoring; Z13.6 Encounter for screening for cardiovascular disorders; E55.9 Vitamin D deficiency, unspecified; Z79.899 Other long term (current) drug therapy

== ENCOUNTER → 2022-01-26 | Outpatient (REF) | payer MEDICARE, OTHER ==
[2022-01-26 18:25] LABS: APPEARANCE, URINE TURBID (CLEAR); BACTERIA, URINE AUTO NEGATIVE (NEGATIVE); BILIRUBIN, URINE AUTO NEGATIVE (NEGATIVE); BLOOD, URINE BLOOD 2+ (NEGATIVE); COLOR, URINE AMBER (YELLOW); GLUCOSE, URINE (UA) AUTO NEGATIVE (NEGATIVE); KETONE, URINE AUTO TRACE mg/dL (NEGATIVE); LEUKOCYTE ESTERASE, URINE AUTO 3+ (NEGATIVE); MUCUS, URINE SMALL (NEGATIVE); NITRITE, URINE AUTO POSITIVE (NEGATIVE); PROTEIN, URINE AUTO 1+ mg/dL (NEGATIVE); RBC, URINE AUTO 49 /HPF (0-3); SPECIFIC GRAVITY URINE AUTO 1.017 (1.002-1.035); SQUAMOUS EPITHELIAL CELL UR AU 1 /HPF (0-6); TRANSITIONAL EPITHELIAL AUTO 2 /HPF; UROBILINOGEN, URINE AUTO 0.2 mg/dL (0.0-2.0); WBC, URINE AUTO TNTC /HPF (0-3)
== END ==
LOC: M SMT 16:48
PROVIDERS: ATTEND Nurse Practitioner Women's Health
DX: R32 Unspecified urinary incontinence (principal)

== ENCOUNTER → 2022-02-10 | Outpatient (CLI) | payer MEDICARE, OTHER | LOC: M RAD 13:53 | PROVIDERS: ATTEND Nurse Practitioner Women's Health | DX: R32 Unspecified urinary incontinence (principal); Z87.440 Personal history of urinary (tract) infections; R35.0 Frequency of micturition; N28.1 Cyst of kidney, acquired ==

== ENCOUNTER → 2022-04-04 | Outpatient (CLI) | payer MEDICARE, OTHER ==
[2022-04-04 15:38] LABS: HEMATOCRIT 38.9 % (36.0-47.0); HEMOGLOBIN 13.4 g/dl (12.0-15.5); MEAN CORPUSCULAR HEMOGLOBIN 32.8 pg (27.0-33.0); MEAN CORPUSCULAR HGB CONC 34.4 g/dl (32.0-36.5); MEAN CORPUSCULAR VOLUME 95.1 fl (80.0-96.0); PLATELET COUNT, AUTOMATED 118 10^3/uL (150-450); RED BLOOD COUNT 4.09 10^6/uL (4.00-5.40); WHITE BLOOD COUNT 4.5 10^3/uL (4.0-10.0)
[2022-04-04 16:10] LABS: BLOOD UREA NITROGEN 20 MG/DL (7-18); CARBON DIOXIDE LEVEL 27 MEQ/L (21-32); CHLORIDE LEVEL 107 MEQ/L (98-107); CREATININE FOR GFR 0.83 MG/DL (0.55-1.30); GLOMERULAR FILTRATION RATE > 60.0 (>32); GLUCOSE, FASTING 109 MG/DL (70-100); MAGNESIUM LEVEL 1.9 MG/DL (1.8-2.4); POTASSIUM SERUM 3.8 MEQ/L (3.5-5.1); SODIUM LEVEL 139 MEQ/L (136-145)
== END ==
LOC: M LAB 14:18
PROVIDERS: ATTEND Physician Assistant
DX: I48.0 Paroxysmal atrial fibrillation (principal); I50.32 Chronic diastolic (congestive) heart failure

== ENCOUNTER → 2022-07-05 | Outpatient (CLI) | payer MEDICARE, OTHER | LOC: M RAD 12:18 | PROVIDERS: ATTEND Registered Nurse | DX: M19.032 Primary osteoarthritis, left wrist (principal) ==

== ENCOUNTER → 2022-07-28 | Outpatient (CLI) | payer MEDICARE, OTHER | LOC: M WUC 10:58 | PROVIDERS: ATTEND Registered Nurse | DX: M25.511 Pain in right shoulder (principal) ==

== ENCOUNTER → 2022-11-09 | Outpatient (CLI) | payer MEDICARE, OTHER ==
[2022-11-09 09:56] LABS: HEMATOCRIT 39.7 % (36.0-47.0); HEMOGLOBIN 13.2 g/dl (12.0-15.5); MEAN CORPUSCULAR HEMOGLOBIN 31.8 pg (27.0-33.0); MEAN CORPUSCULAR HGB CONC 33.2 g/dl (32.0-36.5); MEAN CORPUSCULAR VOLUME 95.7 fl (80.0-96.0); PLATELET COUNT, AUTOMATED 105 10^3/uL (150-450); RED BLOOD COUNT 4.15 10^6/uL (4.00-5.40); WHITE BLOOD COUNT 4.4 10^3/uL (4.0-10.0)
[2022-11-09 10:30] LABS: CALCIUM LEVEL 9.1 MG/DL (8.3-10.6); CREATININE FOR GFR 1.02 MG/DL (0.55-1.30); GLOMERULAR FILTRATION RATE 54.7 (>32); MAGNESIUM LEVEL 1.9 MG/DL (1.8-2.4); POTASSIUM SERUM 4.4 MMOL/L (3.5-5.1)
== END ==
LOC: M LAB 08:41
PROVIDERS: ATTEND Registered Nurse
DX: I48.0 Paroxysmal atrial fibrillation (principal); I50.32 Chronic diastolic (congestive) heart failure

== ENCOUNTER → 2023-05-11 | Outpatient (REF) | payer MEDICARE, OTHER ==
[~2023-05-11] MED LIST changes: -AMIT25TA17 PO; +AMIT25TA19 PO
[2023-05-11 19:20] LABS: HEMATOCRIT 39.2 % (36.0-47.0); HEMOGLOBIN 13.1 g/dl (12.0-15.5); MEAN CORPUSCULAR HEMOGLOBIN 32.1 pg (27.0-33.0); MEAN CORPUSCULAR HGB CONC 33.4 g/dl (32.0-36.5); MEAN CORPUSCULAR VOLUME 96.1 fl (80.0-96.0); PLATELET COUNT, AUTOMATED 158 10^3/uL (150-450); RED BLOOD COUNT 4.08 10^6/uL (4.00-5.40)
[2023-05-11 19:45] LABS: CALCIUM LEVEL 8.8 MG/DL (8.3-10.6); CREATININE FOR GFR 1.02 MG/DL (0.55-1.30); GLOMERULAR FILTRATION RATE 54.7 (>32); MAGNESIUM LEVEL 2.2 MG/DL (1.8-2.4); POTASSIUM SERUM 4.3 MMOL/L (3.5-5.1)
== END ==
LOC: M LAB REF 18:57
PROVIDERS: ATTEND Registered Nurse
DX: I48.0 Paroxysmal atrial fibrillation (principal); I50.32 Chronic diastolic (congestive) heart failure

== ENCOUNTER → 2023-10-06 | Outpatient (CLI) | payer MEDICARE, OTHER ==
[~2023-10-06] MED LIST changes: -EFFE150C2 PO; +EFFE150C3 PO
== END ==
LOC: M RAD 12:01
PROVIDERS: ATTEND Physician Assistant Medical
DX: I67.82 Cerebral ischemia (principal); R42 Dizziness and giddiness; G31.9 Degenerative disease of nervous system, unspecified

== ENCOUNTER → 2024-01-19 | Outpatient (CLI) | payer MEDICARE, OTHER ==
[~2024-01-19] MED LIST changes: +ALPR0.5T3; +ASPI325T57 PO; +CYMB60CA4 PO; +MIRA50TA2
== END ==
LOC: M WUC 13:57
PROVIDERS: ATTEND Physician Assistant Medical
DX: M25.551 Pain in right hip (principal); M25.511 Pain in right shoulder

== ENCOUNTER → 2024-09-09 | Outpatient (REF) | payer MEDICARE, OTHER | LOC: M LAB REF 16:04 | PROVIDERS: ATTEND Physician Assistant Medical | DX: D69.6 Thrombocytopenia, unspecified (principal) ==

== ENCOUNTER → 2025-04-24 | Outpatient (CLI) | payer MEDICARE, OTHER | LOC: M CARPUL 12:53 | PROVIDERS: ATTEND Physician Assistant | DX: I77.810 Thoracic aortic ectasia (principal); I08.0 Rheumatic disorders of both mitral and aortic valves ==